=== PATIENT | female | born 1960 | race Caucasian/White ===

== ENCOUNTER → 2016-10-29 | Outpatient (CLI) | payer BC, OTHER ==
[2016-10-29 20:17] LABS: Basophils % (A) 0 %; CH 27.9; CHCM 32.9; Eosinophils # (A) 0.1 k/uL (0-0.7); Eosinophils % (A) 1 %; HCT 43.7 % (34.0-46.0); HDW 2.94; HGB 14.6 gm/dL (11.4-16.0); Luc # (Auto) 0.11; Luc % (Auto) 2; Lymphocytes # (A) 1.8 k/uL (1.0-4.8); Lymphocytes % (A) 33 %; MCH 28.6 pg (25.0-35.0); MCHC 33.5 g/dL (31.0-37.0); MCV 85.3 fL (80.0-100.0); Mean Platelet Volume 7.8; Monocytes # (A) 0.2 k/uL (0-1.0); Monocytes % (A) 4 %; Neutrophils # (A) 3.3 k/uL (1.3-7.7); Neutrophils % (A) 60 %; RBC 5.12 m/uL (3.80-5.40); RDW 13.8 % (11.5-15.5); WBC 5.5 k/uL (3.8-10.6); WBC (Perox) 5.36
[2016-10-29 21:45] LABS: ALT 28 U/L (9-52); AST 25 U/L (14-36); Alkaline Phosphatase 88 U/L (38-126); Anion Gap 9 mmol/L; Blood Urea Nitrogen 18 mg/dL (7-17); Calcium 10.5 mg/dL (8.4-10.2); Carbon Dioxide 28 mmol/L (22-30); Chloride 104 mmol/L (98-107); Cholesterol 205 mg/dL (<200); Glucose 97 mg/dL (74-99); HDL Cholesterol 69 mg/dL (40-60); Non-African American GFR(MDRD) >60 (>60 ml/min/1.73 sqM); Potassium 4.7 mmol/L (3.5-5.1); Sodium 141 mmol/L (137-145); Total Bilirubin 1.1 mg/dL (0.2-1.3); Total Protein 7.4 g/dL (6.3-8.2); Triglycerides 75 mg/dL (<150)
== END | disposition home or self-care (01) ==
LOC: MMGSC 11:05
PROVIDERS: ATTEND Family Medicine
DX: Z00.00 Encounter for general adult medical examination without abnormal findings (principal); L73.9 Follicular disorder, unspecified
CPT/HCPCS: 36415; 80053; 80061; 84439; 84443; 85025; 87070; 87075; 87205

== ENCOUNTER → 2016-11-01 | Outpatient (CLI) | payer BC, OTHER ==
--- NOTE | 2016-11-02 09:26 | MM ---
Reason for exam: screening (asymptomatic). Last mammogram was performed 1 year and 1 month ago. History: Patient is postmenopausal. Benign right breast aspiration of the right breast, January 06, 2012. Took hormonal contraceptives for 10 years. Physical Findings: A clinical breast exam by your physician is recommended on an annual basis and results should be correlated with mammographic findings. MG Screening Mammo w CAD Bilateral CC and MLO view(s) were taken. Prior study comparison: September 27, 2015, bilateral MG screening mammo w CAD. January 12, 2013, CAD bilateral diagnostic mammogram. April 12, 2011, bilateral digital screening mammo w/CAD. The breast tissue is heterogeneously dense. This may lower the sensitivity of mammography. Previous mammotome biopsy in the right breast. Focal asymmetry in the right breast middle depth slight outer aspect. This finding is changed when compared with previous exams. ASSESSMENT: Incomplete: need additional imaging evaluation, BI-RAD 0 RECOMMENDATION: Special view mammogram of the right breast. If lesion persists on supplemental views, image directed ultrasound is recommended. [facility] will attempt to contact patient to return for supplemental views and ultrasound if indicated.
== END | disposition home or self-care (01) ==
LOC: RADMAMWWP 16:34
PROVIDERS: ATTEND Family Medicine
DX: Z12.31 Encounter for screening mammogram for malignant neoplasm of breast (principal); R92.8 Other abnormal and inconclusive findings on diagnostic imaging of breast

== ENCOUNTER → 2016-11-03 | Outpatient (CLI) | payer BC, OTHER ==
--- NOTE | 2016-11-04 07:19 | MM ---
Reason for exam: additional evaluation requested from abnormal screening. Last mammogram was performed less than 1 month ago. History: Patient is postmenopausal. Benign right breast aspiration of the right breast, January 06, 2012. Took hormonal contraceptives for 10 years. Physical Findings: Nurse did not find any significant physical abnormalities on exam. MG Work Up Mamm w CAD RT LM, spot compression CC, and spot compression MLO view(s) were taken of the right breast. Prior study comparison: November 01, 2016, bilateral MG screening mammo w CAD. September 27, 2015, bilateral MG screening mammo w CAD. January 12, 2013, CAD bilateral diagnostic mammogram. The breast tissue is heterogeneously dense. This may lower the sensitivity of mammography. Focal asymmetry does not completely go away. These results were verbally communicated with the patient and result sheet given to the patient on 11/03/16. ASSESSMENT: Incomplete: need additional imaging evaluation, BI-RAD 0 RECOMMENDATION: Ultrasound of the right breast.
--- NOTE | 2016-11-04 07:21 | USB ---
Reason for exam: additional evaluation requested from abnormal screening. History: Patient is postmenopausal. Benign right breast aspiration of the right breast, January 06, 2012. Took hormonal contraceptives for 10 years. US Breast Workup Limited RT Right breast ultrasound demonstrates a 3 x 2 x 3mm oval lesion too small to characterize at 8 o'clock and a 3 x 3 x 4mm oval, solid lesion, probable lymph node at 8 o'clock. These results were verbally communicated with the patient and result sheet given to the patient on 11/03/16. ASSESSMENT: Probably benign, BI-RAD 3 RECOMMENDATION: Follow-up diagnostic mammogram and ultrasound of the right breast in 6 months.
== END | disposition home or self-care (01) ==
LOC: RADMAMWWP 15:35
PROVIDERS: ATTEND Family Medicine
DX: R92.8 Other abnormal and inconclusive findings on diagnostic imaging of breast (principal)
CPT/HCPCS: 76642; G0206

== ENCOUNTER → 2017-02-11 | Outpatient (CLI) | payer BC, OTHER ==
[2017-02-11 17:28] LABS: Blood Urea Nitrogen 28 mg/dL (7-17); Non-African American GFR(MDRD) >60 (>60 ml/min/1.73 sqM)
== END ==
LOC: LABWHC1 17:00
PROVIDERS: ATTEND Family Medicine
DX: M54.32 Sciatica, left side (principal)
CPT/HCPCS: 36415; 82565; 84520

== ENCOUNTER → 2017-02-12 | Outpatient (CLI) | payer BC, OTHER ==
--- NOTE | 2017-02-12 11:19 | MR ---
MR lumbar spine wo/w con Left Sciatic Pain x14 months MultiHance Multiplanar, multiecho imaging of the lumbar spine was obtained without contrast on a 3 Sofi magnet. REFERENCE: None. FINDINGS: There is a small, 1 cm cystic lesion arising from the lower pole of the left kidney. Christopher sofía soft tissues are otherwise normal. Vertebral body height and alignment are maintained. There is no spondylolysis or spondylolisthesis. Cord signal is maintained. The conus ends normally at the level of the mid body of L1. At T12-L1 and L1-2, no definite abnormality is seen. At L2-3, there is mild disc space loss and disc desiccation. The intervertebral foramina are well freddy ntained. There is mild hypertrophic change in the facets. There is a diffuse disc displacement. There is minimal trefoiling of the thecal sac. At L3-4, there is disc space loss and disc desiccation. Intervertebral foramina are widely maintained . There is a diffuse disc displacement. This hypertrophic change and capsulitis within the facets. Th ere is mild trefoiling of the thecal sac. At L4-5, intervertebral foramina are well maintained. There is a diffuse disc displacement. This hype rtrophic change and capsulitis within the facets. There is mild trefoiling of the thecal sac. At L5-S1, the intervertebral foramina are well maintained. There is a tiny central disc displacement effacing the thecal sac without definite neural compression. There hypertrophic changes and capsuliti s within the facets. IMPRESSION: 1. DIFFUSE DEGENERATIVE DISC DISEASE AND FACET ARTHROPATHY. 2. NO SIGNIFICANT COMPRESSIVE DISCOPATHY OR NEURAL COMPRESSION. 3. TINY CYSTIC LESION ARISING FROM THE LOWER POLE OF THE LEFT KIDNEY. THIS COULD BE FURTHER INVESTIGA SUHA WITH ULTRASOUND.
== END | disposition home or self-care (01) ==
LOC: RADMRIMAIN 10:07
PROVIDERS: ATTEND Family Medicine
DX: M51.36 Other intervertebral disc degeneration, lumbar region (principal); M46.06 Spinal enthesopathy, lumbar region
CPT/HCPCS: 72158; A9577

== ENCOUNTER → 2017-04-21 | Outpatient (CLI) | payer BC, OTHER ==
--- NOTE | 2017-04-21 17:53 | US ---
EXAMINATION TYPE: US kidneys/renal and bladder DATE OF EXAM: 04/21/2017 COMPARISON: MR 2017 CLINICAL HISTORY: N28.1 kidney cyst. EXAM MEASUREMENTS: Right Kidney: 10.1 X 5.2 X 4.6 cm Left Kidney: 10.0 X 4.9 X 5.5 cm Post Void Residual Volume: 15.3 mL Right Kidney: No hydronephrosis or masses seen Left Kidney: possible small cyst lower pole 1.3 x1.6 x 1.1cm Bladder: wnl Bilateral Jets seen: Yes Normal Post Void Residual: Yes IMPRESSION: No evidence of solid renal mass or obstruction. Normal bladder emptying. Small left renal cortical cy st.
== END | disposition home or self-care (01) ==
LOC: RADUSWWP 15:54
PROVIDERS: ATTEND Family Medicine
DX: N28.1 Cyst of kidney, acquired (principal)
CPT/HCPCS: 76770

== ENCOUNTER → 2017-05-06 | Outpatient (CLI) | payer BC, OTHER ==
--- NOTE | 2017-05-06 08:53 | USB ---
Reason for exam: follow-up at short interval from prior study. History: Patient is postmenopausal. Benign right breast aspiration of the right breast, January 06, 2012. Took hormonal contraceptives for 10 years. Physical Findings: Nurse did not find any significant physical abnormalities on exam. US Breast RT Right breast ultrasound includes all four quadrants, the retroareolar region and axilla. Finding demonstrates three oval lesions too small to characterize measuring 0.2 x 0.2 x 0.1cm at 8 o'clock, 0.4 x 0.4 x 0.2cm at 10 o'clock and 0.4 x 0.4 x 0.2cm at 11 o'clock. These results were verbally communicated with the patient and result sheet given to the patient on 05/06/17. ASSESSMENT: Incomplete: need additional imaging evaluation, BI-RAD 0 RECOMMENDATION: Follow-up diagnostic mammogram of the right breast.
--- NOTE | 2017-05-06 09:00 | MM ---
Reason for exam: additional evaluation requested from abnormal screening. Last mammogram was performed 6 months ago. History: Patient is postmenopausal. Benign right breast aspiration of the right breast, January 06, 2012. Took hormonal contraceptives for 10 years. MG Diagnostic Mammo RT w CAD CC and MLO view(s) were taken of the right breast. Prior study comparison: November 03, 2016, right breast MG work up mamm w CAD RT. November 01, 2016, bilateral MG screening mammo w CAD. The breast tissue is heterogeneously dense. This may lower the sensitivity of mammography. No significant new findings when compared with previous films. These results were verbally communicated with the patient and result sheet given to the patient on 05/06/17. ASSESSMENT: Benign, BI-RAD 2 RECOMMENDATION: Return to routine screening mammogram schedule for both breasts. Back on schedule.
== END | disposition home or self-care (01) ==
LOC: RADUSWWP 06:58
PROVIDERS: ATTEND Family Medicine
DX: R92.8 Other abnormal and inconclusive findings on diagnostic imaging of breast (principal)
CPT/HCPCS: 76641; G0206

== ENCOUNTER → 2018-06-16 | Outpatient (CLI) | payer BC, OTHER ==
--- NOTE | 2018-06-19 10:03 | MM ---
Reason for exam: additional evaluation requested from prior study. Last mammogram was performed 1 year and 1 month ago. History: Patient is postmenopausal. Benign right breast aspiration of the right breast, January 06, 2012. Took hormonal contraceptives for 10 years. Physical Findings: Nurse did not find any significant physical abnormalities on exam. MG 3D Diag Mammo W/Cad BILL Bilateral CC and MLO view(s) were taken. Prior study comparison: May 06, 2017, right breast MG diagnostic mammo RT w CAD. November 03, 2016, right breast MG work up mamm w CAD RT. The breast tissue is heterogeneously dense. This may lower the sensitivity of mammography. No suspicious calcifications are seen. Previous mammotome biopsy in the right breast. There is chronic nodularity bilaterally. There is no dominant lesion. No significant new findings when compared with previous films. These results were verbally communicated with the patient and result sheet given to the patient on 06/16/18. ASSESSMENT: Benign, BI-RAD 2 RECOMMENDATION: Routine screening mammogram of both breasts in 1 year.
== END | disposition home or self-care (01) ==
LOC: RADMAMWWP 15:02
PROVIDERS: ATTEND Family Medicine
DX: R92.8 Other abnormal and inconclusive findings on diagnostic imaging of breast (principal)
CPT/HCPCS: 77062; 77066

== ENCOUNTER → 2018-07-25 | Outpatient (CLI) | payer OTHER ==
--- NOTE | 2018-07-25 18:06 | XR ---
EXAMINATION TYPE: XR wrist complete BILATERAL DATE OF EXAM: 07/25/2018 COMPARISON: NONE HISTORY: Bilateral hand and wrist pain TECHNIQUE: 4 views each wrist FINDINGS: There is some narrowing and spurring at the first carpometacarpal joint of both wrists. The re is narrowing at the scaphoid trapezium joint bilaterally. I see no fracture nor dislocation. There are no erosions. Radiocarpal joints are intact. IMPRESSION: Osteoarthritic changes. No sign of inflammatory arthritis.
--- NOTE | 2018-07-25 18:07 | XR ---
EXAMINATION TYPE: XR hand complete bilateral DATE OF EXAM: 07/25/2018 COMPARISON: NONE HISTORY: Hand and wrist pain TECHNIQUE: 3 views each hand FINDINGS: I see no fracture nor dislocation. Joint spaces overall are fairly normal. There is degener ative spurring at the first carpometacarpal joints bilaterally. Metacarpals are intact. There is no s ubluxation. There is no osteopenia. 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 No fracture. No sign of inflammatory arthritis.
== END | disposition home or self-care (01) ==
LOC: RADXRMAIN 17:13
PROVIDERS: ATTEND Emergency Medicine
DX: M19.042 Primary osteoarthritis, left hand (principal); M19.041 Primary osteoarthritis, right hand; M19.032 Primary osteoarthritis, left wrist; M19.031 Primary osteoarthritis, right wrist

== ENCOUNTER → 2019-08-28 | Outpatient (CLI) | payer OTHER ==
--- NOTE | 2019-08-30 10:11 | MM ---
Reason for exam: screening (asymptomatic). Last mammogram was performed 1 year and 2 months ago. History: Patient is postmenopausal. Benign right breast aspiration of the right breast, January 06, 2012. Took hormonal contraceptives for 10 years. Physical Findings: A clinical breast exam by your physician is recommended on an annual basis and results should be correlated with mammographic findings. MG 3D Screening Mammo W/Cad Bilateral CC and MLO view(s) were taken. Prior study comparison: June 16, 2018, bilateral MG 3d diag mammo w/cad BILL. May 06, 2017, right breast MG diagnostic mammo RT w CAD. The breast tissue is heterogeneously dense. This may lower the sensitivity of mammography. Previous mammotome biopsy in the right breast. There is chronic nodularity bilaterally. No significant changes when compared with prior studies. ASSESSMENT: Benign, BI-RAD 2 RECOMMENDATION: Routine screening mammogram of both breasts in 1 year.
== END | disposition home or self-care (01) ==
LOC: RADMAMWWP 08:12
PROVIDERS: ATTEND Family Medicine
DX: Z12.31 Encounter for screening mammogram for malignant neoplasm of breast (principal)
CPT/HCPCS: 77063; 77067

== ENCOUNTER → 2020-11-11 | Outpatient (CLI) | payer OTHER | END | disposition home or self-care (01) | LOC: LABWHC1 16:51 | PROVIDERS: ATTEND Family Medicine | DX: U07.1 COVID-19 (principal) | CPT/HCPCS: U0003; C9803; U0005 ==

== ENCOUNTER 2020-11-19 08:21 | Emergency (ER) | payer OTHER ==
[2020-11-19 08:27] VITALS: TEMP 99.4
--- NOTE | 2020-11-19 08:31 | ED ---
General Adult HPI - General Chief complaint: Shortness of Breath Stated complaint: SOB Time Seen by Provider: 11/19/20 08:25 Source: patient, EMS, RN notes reviewed, old records reviewed Mode of arrival: EMS Limitations: no limitations - History of Present Illness Initial comments: This a 60-year-old female presents emergency department with exposure to COVID. Patient states some of her symptoms started on . Patient states she's had a dry cough and some shortness of breath. Patient called EMS this morning to take care of her witnessed syncopal episode and when they were there she mentioned she wasn't feeling good so they checked her out and she was oxygenating in the high 80s and so they placed on oxygen and brought her in. P atient denies any palpitations or chest pain. Patient denies any nausea vomiting. Patient denies any diarrhea. Patient denies any dysuria hematuria urinary frequency. Patient states she hasn't had a fever chills lately. - Related Data Home Medications Medication Instructions Recorded Confirmed Sertraline [Zoloft] 100 mg PO DAILY 09/18/15 11/19/20 Albuterol Sulfate [Ventolin HFA] 1 - 2 puff INHALATION RT-Q6H PRN 11/19/20 11/19/20 Azithromycin [Zithromax Z-pack (6 See Taper PO DIRECTED 11/19/20 11/19/20 tabs)] Benzonatate [Tessalon Perles] 100 - 200 mg PO TID PRN 11/19/20 11/19/20 lisinopriL [Lisinopril] 20 mg PO DAILY 11/19/20 11/19/20 methylPREDNISolone [Medrol Dose See Taper PO DIRECTED 11/19/20 11/19/20 Pack] Allergies Allergy/AdvReac Type Severity Reaction Status Date / Time No Known Allergies Allergy Verified 11/19/20 09:19 Review of Systems ROS Statement: Those systems with pertinent positive or pertinent negative responses have been documented in the HPI. ROS Other: All systems not noted in ROS Statement are negative. Past Medical History Past Medical History: Hypertension, Skin Disorder Additional Past Medical History / Comment(s): arthritis, acne History of Any Multi-Drug Resistant Organisms: None Reported Past Surgical History: Joint Replacement, Orthopedic Surgery, Tubal Ligation Additional Past Surgical History / Comment(s): left knee replacement, joints re placed in both great toes, rt wrist surgery Past Anesthesia/Blood Transfusion Reactions: Postoperative Nausea & Vomiting (PONV) Past Psychological History: No Psychological Hx Reported Smoking Status: Never smoker Past Alcohol Use History: None Reported Past Drug Use History: None Reported - Past Family History Sister(s) Family Medical History: Cancer General Exam - General Exam Comments Initial Comments: GENERAL: Patient is well-developed and well-nourished. Patient is nontoxic and well- hydrated and is in mild distress. ENT: Neck is soft and supple. No significant lymphadenopathy is noted. Oropharynx is clear. Moist mucous membranes. Neck has full range of motion without eliciting any pain. EYES: The sclera were anicteric and conjunctiva were pink and moist. Extraocular movements were intact and pupils were equal round and reactive to light. Eyelids were unremarkable. PULMONARY: Unlabored respirations. Good breath sounds bilaterally. No audible rales rhonchi or wheezing was noted. CARDIOVASCULAR: There is a regular rate and rhythm without any murmurs gallops or rubs. ABDOMEN: Soft and nontender with normal bowel sounds. No palpable organomegaly was noted. There is no palpable pulsatile mass. SKIN: Skin is clear with no lesions or rashes and otherwise unremarkable. NEUROLOGIC: Patient is alert and oriented x3. Cranial nerves II through XII are grossly intact. Motor and sensory are also intact. Normal speech, volume and content. Symmetrical smile. MUSCULOSKELETAL: Normal extremities with adequate strength and full range of motion. LYMPHATICS: No significant lymphadenopathy is noted PSYCHIATRIC: Normal psychiatric evaluation. Limitations: no limitations Course Vital Signs 11/19/20 11/19/20 08:22 09:00 Temperature 99.4 F Pulse Rate 77 73 Respiratory 18 18 Rate Blood Pressure 134/59 O2 Sat by Pulse 94 L 93 L Oximetry Medical Decision Making - Medical Decision Making EKG shows normal sinus rhythm at 73 bpm FL interval 232 QRS is 88 QT interval 396 QTC is 436 per patient's EKG shows no ST segment elevation or depression. I went into the patient's room multiple times the patient's oxygenation was 9495% on room air. CT of the chest shows no pulmonary embolism however does show groundglass infiltrate bilaterally consistent with Patient received monoclonal antibodies. - Lab Data Result diagrams: 11/19/20 08:27 11/19/20 08:27 Lab Results 11/19/20 11/19/20 11/19/20 Range/Units 08:27 08:27 08:27 WBC 5.9 (3.8-10.6) k/uL RBC 4.93 (3.80-5.40) m/uL Hgb 13.6 (11.4-16.0) gm/dL Hct 38.8 (34.0-46.0) % MCV 78.8 L (80.0-100.0) fL MCH 27.6 (25.0-35.0) pg MCHC 35.0 (31.0-37.0) g/dL RDW 13.8 (11.5-15.5) % Plt Count 183 (150-450) k/uL MPV 7.1 Neutrophils % 84 % Lymphocytes % 9 % Monocytes % 5 % Eosinophils % 1 % Basophils % 0 % Neutrophils # 4.9 (1.3-7.7) k/uL Lymphocytes # 0.5 L (1.0-4.8) k/uL Monocytes # 0.3 (0-1.0) k/uL Eosinophils # 0.1 (0-0.7) k/uL Basophils # 0.0 (0-0.2) k/uL PT 10.0 (9.0-12.0) sec INR 0.9 (<1.2) APTT 23.4 (22.0-30.0) sec D-Dimer 0.68 H (<0.60) mg/L FEU Sodium 138 (137-145) mmol/L Potassium 3.6 (3.5-5.1) mmol/L Chloride 108 H (98-107) mmol/L Carbon Dioxide 20 L (22-30) mmol/L Anion Gap 10 mmol/L BUN 19 H (7-17) mg/dL Creatinine 0.61 (0.52-1.04) mg/dL Est GFR (CKD-EPI)AfAm >90 (>60 ml/min/1.73 sqM) Est GFR (CKD-EPI)NonAf >90 (>60 ml/min/1.73 sqM) Glucose 156 H (74-99) mg/dL Plasma Lactic Acid Landon (0.7-2.0) mmol/L Calcium 9.4 (8.4-10.2) mg/dL Magnesium 1.9 (1.6-2.3) mg/dL Total Bilirubin 0.8 (0.2-1.3) mg/dL AST 46 H (14-36) U/L ALT 25 (4-34) U/L Alkaline Phosphatase 85 (38-126) U/L Lactate Dehydrogenase 602 (313-618) U/L C-Reactive Protein 42.5 H (<10.0) mg/L Total Protein 6.5 (6.3-8.2) g/dL Albumin 3.6 (3.5-5.0) g/dL Coronavirus (PCR) (Not Detectd) 11/19/20 11/19/20 11/19/20 Range/Units 08:27 08:32 10:43 WBC (3.8-10.6) k/uL RBC (3.80-5.40) m/uL Hgb (11.4-16.0) gm/dL Hct (34.0-46.0) % MCV (80.0-100.0) fL MCH (25.0-35.0) pg MCHC (31.0-37.0) g/dL RDW (11.5-15.5) % Plt Count (150-450) k/uL MPV Neutrophils % % Lymphocytes % % Monocytes % % Eosinophils % % Basophils % % Neutrophils # (1.3-7.7) k/uL Lymphocytes # (1.0-4.8) k/uL Monocytes # (0-1.0) k/uL Eosinophils # (0-0.7) k/uL Basophils # (0-0.2) k/uL PT (9.0-12.0) sec INR (<1.2) APTT (22.0-30.0) sec D-Dimer (<0.60) mg/L FEU Sodium (137-145) mmol/L Potassium (3.5-5.1) mmol/L Chloride (98-107) mmol/L Carbon Dioxide (22-30) mmol/L Anion Gap mmol/L BUN (7-17) mg/dL Creatinine (0.52-1.04) mg/dL Est GFR (CKD-EPI)AfAm (>60 ml/min/1.73 sqM) Est GFR (CKD-EPI)NonAf (>60 ml/min/1.73 sqM) Glucose (74-99) mg/dL Plasma Lactic Acid Landon 1.2 (0.7-2.0) mmol/L Calcium (8.4-10.2) mg/dL Magnesium (1.6-2.3) mg/dL Total Bilirubin (0.2-1.3) mg/dL AST (14-36) U/L ALT (4-34) U/L Alkaline Phosphatase (38-126) U/L Lactate Dehydrogenase (313-618) U/L C-Reactive Protein (<10.0) mg/L Total Protein (6.3-8.2) g/dL Albumin (3.5-5.0) g/dL Coronavirus (PCR) Not Detected Detected A (Not Detectd) Disposition Clinical Impression: Pneumonia due to COVID-19 virus Disposition: HOME SELF-CARE Condition: Good Instructions (If sedation given, give patient instructions): Coronavirus Disease 2019 (COVID-19) Additional Instructions: Patient should return if she has any difficulty breathing or any worsening symptoms or new symptoms. Is patient prescribed a controlled substance at d/c from ED?: No Referrals: Majo Nichole MD [Primary Care Provider] - 1-2 days Time of Disposition: 11:28
[2020-11-19 08:55] LABS: Basophils % (A) 0 %; Eosinophils # (A) 0.1 k/uL (0-0.7); Eosinophils % (A) 1 %; HCT 38.8 % (34.0-46.0); HGB 13.6 gm/dL (11.4-16.0); Lymphocytes # (A) 0.5 k/uL (1.0-4.8); Lymphocytes % (A) 9 %; MCH 27.6 pg (25.0-35.0); MCV 78.8 fL (80.0-100.0); Mean Platelet Volume 7.1; Monocytes # (A) 0.3 k/uL (0-1.0); Monocytes % (A) 5 %; Neutrophils # (A) 4.9 k/uL (1.3-7.7); Neutrophils % (A) 84 %; Platelet Count 183 k/uL (150-450); RBC 4.93 m/uL (3.80-5.40); RDW 13.8 % (11.5-15.5); WBC 5.9 k/uL (3.8-10.6)
[2020-11-19 09:05] LABS: ALT 25 U/L (4-34); AST 46 U/L (14-36); African American GFR (CKD) >90 (>60 ml/min/1.73 sqM); Albumin 3.6 g/dL (3.5-5.0); Alkaline Phosphatase 85 U/L (38-126); Anion Gap 10 mmol/L; Blood Urea Nitrogen 19 mg/dL (7-17); Calcium 9.4 mg/dL (8.4-10.2); Carbon Dioxide 20 mmol/L (22-30); Chloride 108 mmol/L (98-107); Glucose 156 mg/dL (74-99); LDH 602 U/L (313-618); Magnesium 1.9 mg/dL (1.6-2.3); Non-African American GFR(CKD) >90 (>60 ml/min/1.73 sqM); Potassium 3.6 mmol/L (3.5-5.1); Sodium 138 mmol/L (137-145); Total Bilirubin 0.8 mg/dL (0.2-1.3); Total Protein 6.5 g/dL (6.3-8.2)
[2020-11-19 09:14] LABS: INR 0.9 (<1.2); Partial Thromboplastin Time 23.4 sec (22.0-30.0)
[2020-11-19 09:19] LABS: C Reactive Protein 42.5 mg/L (<10.0)
[2020-11-19 09:20] LABS: D-Dimer 0.68 mg/L FEU (<0.60)
--- NOTE | 2020-11-19 09:56 | XR ---
EXAMINATION TYPE: XR chest 1V portable DATE OF EXAM: 11/19/2020 COMPARISON: None INDICATION: Cough and shortness of breath TECHNIQUE: Single frontal view of the chest is obtained. FINDINGS: The heart size is normal. The pulmonary vasculature is somewhat prominent. Mild diffuse increased lung markings are present. Findings are nonspecific. Findings could be compati ble with atypical pneumonia IMPRESSION: 1. Mild diffuse increased lung markings with slight prominence of pulmonary vascular markings. Consid er atypical pneumonia within the differential. Mild volume overload could be considered.
--- NOTE | 2020-11-19 10:43 | CT ---
EXAMINATION TYPE: CT chest angio for PE DATE OF EXAM: 11/19/2020 COMPARISON: none HISTORY: SOB, Covid CT DLP: 417.5 mGycm CONTRAST: CT chest with contrast and 3D reconstruction with MIP imaging is performed with IV Contrast, patient injected with 69 mL of Isovue 370. Contrast-enhanced CT of the chest was performed through the course of the pulmonary arteries with terri g and mediastinal window settings submitted. 3D reconstruction with MIP imaging was also performed. PULMONARY ARTERIES: The pulmonary arteries and their major tributaries are patent. I do not see dorinda dence for sizable filling defect to suggest pulmonary embolic process. LUNGS: Scattered groundglass infiltrates are seen throughout both lung jane compatible with Covid 1 9 pneumonia. Mild compressive atelectasis and small effusions. No pulmonary nodule or mass is detecte d. MEDIASTINUM: Thoracic aorta is of normal caliber,however, evaluation is limited given timing of the contrast bolus. If there is concern for thoracic aortic pathology consider SATISH. Correlate clinicall y . The heart is not enlarged. No evidence for mediastinal mass. No mediastinal lymph nodes greater than 1cm. HILAR STRUCTURES: No evidence for mass. No hilar lymph nodes greater than 1 cm. UPPER ABDOMEN: No significant abnormality is seen. IMPRESSION: 1. No evidence for Pulmonary embolism at this time. 2.Scattered groundglass infiltrates are seen throughout both lung jane compatible with Covid 19 pne umonia.
[2020-11-19] MEDS ORDERED: BAMLANIVIMAB (EUA) 700 MG, ETESEVIMAB (EUA) 1,400 MG in SODIUM CHLORIDE 0.9% 50 ML IVPB ONE ×2 (11:45→12:15)
[2020-11-19 13:20] VITALS: BP 132/68; PULSE 68; RESP 20
[2020-11-19 16:38] LABS: Ferritin 156.5 ng/mL (10.0-291.0)
== END 2020-11-19 14:35 | disposition home or self-care (01) ==
LOC: EC 08:21
DX: U07.1 COVID-19 (principal); J12.82 Pneumonia due to coronavirus disease 2019; I10 Essential (primary) hypertension
CPT/HCPCS: 99285; 96365; 36415; 93005; 85379; 80053; 82728; 83605; 83615; 83735; 85025; 85610; 85730; 86140; 87040; 84145; 87635; 71045; 71275; Q9967; Q0245

== ENCOUNTER 2020-12-18 07:02 | Day surgery (SDC) | payer OTHER ==
[2020-12-16 12:08] VITALS: BMI 38.9
[~2020-12-18 07:02] MED LIST: LACTATED RINGERS 1,000 ML IV SCH
[2020-12-18 07:38] VITALS: TEMP 98.2
[2020-12-18] MEDS ORDERED: LIDOCAINE 1% (10MG/ML) FOR IV START INTRADERMA ONE (07:42)
[2020-12-18] MEDS ORDERED: ONDANSETRON 4 MG/2 ML VIAL ONE (07:44)
[2020-12-18] MEDS ORDERED: ONDANSETRON 4 MG/2 ML VIAL IVP ONE (07:46)
[2020-12-18] MEDS ORDERED: PROPOFOL 10 MG/ML 20 ML VIAL IV ONE (08:09)
[2020-12-18] MEDS ORDERED: LIDOCAINE 1% INJ 10MG/ML (20 ML MDV) ONE (08:09)
--- NOTE | 2020-12-18 08:36 | P.PCN ---
Date of Procedure: 12/18/20 Description of Procedure: BRIEF HISTORY: Patient is a 60-year-old female presenting for outpatient colonoscopy with personal history of colon polyps. Patient has previously undergone colonoscopy with the last in 09/2015. Previously she has had polypectomy. She does have a family history of colon cancer in her father. No change in bowel habits or blood per rectum. PROCEDURE PERFORMED: Colonoscopy. PREOPERATIVE DIAGNOSIS: Personal history of colon polyps, last colonoscopy 2015, family history of colon cancer in her father. ESTIMATED BLOOD LOSS: Minimal. IV sedation per Anesthesia. PROCEDURE: After informed consent was obtained, the patient, was brought into the endoscopy unit. IV sedation was administered by Anesthesia under continuous monitoring. Digital rectal examination was normal. Initially the Olympus CF-190 flexible video colonoscope was then inserted in the rectum, gradually advanced into the cecum without any difficulty. Careful examination was performed as the scope was gradually being withdrawn. Ileocecal valve and the appendiceal orifice were visualized and appeared normal. Prep was excellent. Mucosa of the cecum, ascending colon, transverse colon, descending colon, sigmoid colon, and rectum appeared normal. Retroflexion was performed in the rectum and no lesions were seen, low-grade internal hemorrhoids seen . The patient tolerated the procedure well. IMPRESSION: Normal-appearing colon from rectum to cecum. Internal hemorrhoids. RECOMMENDATIONS: Findings of this examination were discussed with the patient and her family. Okay to resume diet. Okay to resume medications. Continue current medical management. Recommend repeat colonoscopy in 5 years for family history of colon cancer.
[2020-12-18 09:13] VITALS: BP 113/76; PULSE 75; RESP 20
== END 2020-12-18 09:12 | disposition home or self-care (01) ==
LOC: ORWHC2ENDO 07:02
PROVIDERS: ATTEND Internal Medicine
DX: Z12.11 Encounter for screening for malignant neoplasm of colon (principal); K64.8 Other hemorrhoids; K21.9 Gastro-esophageal reflux disease without esophagitis; I10 Essential (primary) hypertension; Z86.010 Personal history of colon polyps; Z80.0 Family history of malignant neoplasm of digestive organs; Z87.891 Personal history of nicotine dependence; Z98.890 Other specified postprocedural states; Z79.82 Long term (current) use of aspirin; Z79.899 Other long term (current) drug therapy
CPT/HCPCS: J2405; J2001; J2704; G0105; 45378

== ENCOUNTER → 2022-01-28 | Outpatient (CLI) | payer OTHER ==
--- NOTE | 2022-01-30 14:41 | MM ---
Reason for Exam: Screening (asymptomatic). Last mammogram was performed 2 year(s) and 5 month(s) ago. Patient History: Menarche at age 11. First Full-Term at age 25. Postmenopausal. Patient used Hormonal Contraceptives for 10 years. 01/06/2012, Benign Cyst Aspiration on the right side. Risk Values: Candy 5 year model risk: 1.7%. NCI Lifetime model risk: 7.7%. Prior Study Comparison: 05/06/2017 Right Diagnostic Mammogram, [facility]. 06/16/2018 Bilateral Diagnostic Mammogram, [facility]. 08/28/2019 Bilateral Screening Mammogram, [facility]. Tissue Density: There are scattered fibroglandular densities. Findings: Analyzed By CAD. Chronic nodularity in the lateral aspect of both breasts. Microclip anterior right breast from prior biopsy. No significant change from prior exams. Overall Assessment: Benign, BI-RAD 2 Management: Screening Mammogram of both breasts in 1 year. A clinical breast exam by your physician is recommended on an annual basis and results should be correlated with mammographic findings. Also, the patient should continue monthly self breast exams. Electronically signed and approved by: Mariella Hobbs M.D. Radiologist
== END | disposition home or self-care (01) ==
LOC: RADMAMWWP 08:48
PROVIDERS: ATTEND Family Medicine
DX: Z12.31 Encounter for screening mammogram for malignant neoplasm of breast (principal)
CPT/HCPCS: 77067

== ENCOUNTER → 2022-02-24 | Outpatient (CLI) | payer OTHER | END | disposition home or self-care (01) | LOC: LABWHC1 16:08 | PROVIDERS: ATTEND Internal Medicine Endocrinology, Diabetes & Metabolism | DX: Z53.9 Procedure and treatment not carried out, unspecified reason (principal) ==

== ENCOUNTER 2022-08-10 09:40 | Emergency (ER) | payer OTHER ==
[2022-08-10 09:47] VITALS: BP 128/62; PULSE 79; RESP 20; TEMP 98.9
--- NOTE | 2022-08-10 10:35 | ED ---
General Adult HPI - General Chief complaint: Recheck/Abnormal Lab/Rx Stated complaint: COVID test Time Seen by Provider: 08/10/22 09:45 Source: patient, RN notes reviewed Mode of arrival: ambulatory Limitations: no limitations - History of Present Illness Initial comments: 62-year-old female presents emergency Department with chief complaint of needing COVID-19 testing. Patient states she's had congestion for last 2 days her work sent urine for testing. Patient states she has mild cold including nasal congestion, nonproductive cough, sore throat. She denies any reported fever or chills mild headache. Denies any chest pain shortness of breath. Patient offers no other associated symptoms - Related Data Home Medications Medication Instructions Recorded Confirmed Sertraline [Zoloft] 100 mg PO DAILY 09/18/15 12/18/20 lisinopriL [Lisinopril] 20 mg PO DAILY 11/19/20 12/18/20 Aspirin With Advil(Unknown Rx) 1 dose PO ONCE 12/16/20 12/18/20 Calcium Carb/Magnesium Hydrox 1 each PO DIRECTED PRN 12/16/20 12/18/20 [Rolaids Chewable Tablet] Cholecalciferol [Vitamin D3 (25 2,000 units PO DAILY 12/16/20 12/18/20 Mcg = 1000 Iu)] Heart Supplement 1 tab PO DAILY 12/16/20 12/18/20 Lutein (Unknown Dose) 1 tab PO DAILY 12/16/20 12/18/20 Vitamin C (Unknown Dose) 1 tab PO DAILY 12/16/20 12/18/20 Allergies Allergy/AdvReac Type Severity Reaction Status Date / Time No Known Allergies Allergy Verified 08/10/22 09:47 Review of Systems ROS Statement: Those systems with pertinent positive or pertinent negative responses have been documented in the HPI. ROS Other: All systems not noted in ROS Statement are negative. Past Medical History Past Medical History: Diabetes Mellitus, Hypertension, Skin Disorder Additional Past Medical History / Comment(s): arthritis, acne History of Any Multi-Drug Resistant Organisms: None Reported Past Surgical History: Joint Replacement, Orthopedic Surgery, Tubal Ligation Additional Past Surgical History / Comment(s): left knee replacement, joints replaced in both great toes, rt wrist surgery Past Anesthesia/Blood Transfusion Reactions: Postoperative Nausea & Vomiting (PONV) Past Psychological History: No Psychological Hx Reported Smoking Status: Never smoker Past Alcohol Use History: None Reported Past Drug Use History: None Reported - Past Family History Sister(s) Family Medical History: No Reported History Father Family Medical History: Cancer, Myocardial Infarction ([place]) Additional Family Medical History / Comment(s): colon cancer General Exam Limitations: no limitations General appearance: alert, in no apparent distress Head exam: Present: atraumatic, normocephalic, normal inspection Eye exam: Present: normal appearance, PERRL, EOMI. Absent: scleral icterus, conjunctival injection, periorbital swelling ENT exam: Present: normal exam, normal oropharynx, mucous membranes moist Neck exam: Present: normal inspection, full ROM. Absent: tenderness, meningismus, lymphadenopathy Respiratory exam: Present: normal lung sounds bilaterally. Absent: respiratory distress, wheezes, rales, rhonchi, stridor Cardiovascular Exam: Present: regular rate, normal rhythm, normal heart sounds. Absent: systolic murmur, diastolic murmur, rubs, gallop, clicks Course Vital Signs 08/10/22 09:45 Temperature 98.9 F Pulse Rate 79 Respiratory 20 Rate Blood Pressure 128/62 O2 Sat by Pulse 98 Oximetry Medical Decision Making - Medical Decision Making Patient has COVID-19 positive. Patient discharged in stable condition. - Lab Data Lab Results 08/10/22 08/10/22 Range/Units 09:50 09:50 Coronavirus (PCR) Detected A (Not Detectd) Influenza Type A RNA Not Detected (Not Detectd) Influenza Type B (PCR) Not Detected (Not Detectd) Disposition Clinical Impression: COVID-19 Disposition: HOME SELF-CARE Condition: Stable Instructions (If sedation given, give patient instructions): COVID-19 (Coronavirus Disease 2019) (ED) Additional Instructions: Please return to the Emergency Department if symptoms worsen or any other concerns. Is patient prescribed a controlled substance at d/c from ED?: No Referrals: Majo Nichole MD [Primary Care Provider] - 1-2 days Time of Disposition: 10:34
== END 2022-08-10 10:42 | disposition home or self-care (01) ==
LOC: EC 09:40
DX: U07.1 COVID-19 (principal); I10 Essential (primary) hypertension; E11.9 Type 2 diabetes mellitus without complications; Z79.899 Other long term (current) drug therapy; Z79.82 Long term (current) use of aspirin
CPT/HCPCS: 87502; 87635; 99283

== ENCOUNTER → 2023-02-01 | Outpatient (CLI) | payer OTHER ==
[2023-02-01 20:51] LABS: Blood Urea Nitrogen 17.6 mg/dL (9.0-27.0); Calcium 10.5 mg/dL (8.7-10.3); Carbon Dioxide 22.5 mmol/L (21.6-31.8); Chloride 103 mmol/L (96-109); Glucose 88 mg/dL (70-110); Potassium 4.4 mmol/L (3.5-5.5); Sodium 139 mmol/L (135-145)
[2023-02-02 00:07] LABS: Basophils # (A) 0.02 X 10*3/uL (0.00-0.10); Basophils % (A) 0.3 %; Eosinophils # (A) 0.12 X 10*3/uL (0.04-0.35); Eosinophils % (A) 1.6 %; HCT 42.9 % (37.2-46.3); Lymphocytes # (A) 2.28 X 10*3/uL (0.90-5.00); MCH 27.6 pg (27.0-32.0); MCHC 32.6 d/dL (32.0-37.0); MCV 84.4 FL (80.0-97.0); Monocytes # (A) 0.47 X 10*3/uL (0.20-1.00); Monocytes % (A) 6.2 %; NRBC Per 100 WBC 0 X 10*3/uL (0.00-0.01); Neutrophils # (A) 4.68 X 10*3/uL (1.80-7.70); Neutrophils % (A) 61.5 %; Platelet Count 218 X 10*3/uL (140-440); RBC 5.08 X 10*6/uL (4.10-5.20); RDW 13.3 % (11.5-14.5)
== END | disposition home or self-care (01) ==
LOC: LABPAT 15:02
PROVIDERS: ATTEND Orthopaedic Surgery Hand Surgery
DX: Z01.818 Encounter for other preprocedural examination (principal); G56.01 Carpal tunnel syndrome, right upper limb; M13.841 Other specified arthritis, right hand
CPT/HCPCS: 80048; 85025; 93005

== ENCOUNTER → 2023-02-01 | Outpatient (CLI) | payer OTHER ==
--- NOTE | 2023-02-01 15:16 | US ---
EXAMINATION TYPE: US kidneys/renal and bladder DATE OF EXAM: 02/01/2023 COMPARISON: US 2017 CLINICAL INDICATION: Female, 62 years old with history of R31.9 HEMATURIA, R10.9 FLANK PAIN; Hx stone s, cyst on left kidney. Pain x 1 year pain has gotten worse x 1 week. EXAM MEASUREMENTS: Right Kidney: 11.7 x 6.2 x 6.0 cm Left Kidney: 12.0 x 6.5 x 6.6 cm Right Kidney: Hyperechoic focus seen at mid: 0.5 x 0.5 x 0.4 cm. Left Kidney: Appearance of minimal hydronephrosis- scanned post void as well-renal pelvis measures 1.3 cm. Bladder: Appears wnl Bilateral Jets seen: Yes Minimal left hydronephrosis. Nonobstructive right renal calculus measuring up to 0.5 cm. No solid shania al mass identified. Bladder appears unremarkable with bilateral ureter jets identified. IMPRESSION: 1. Minimal left hydronephrosis. 2. Nonobstructive right renal calculus.
== END | disposition home or self-care (01) ==
LOC: RADUSWWP 14:01
PROVIDERS: ATTEND Family Medicine
DX: N13.2 Hydronephrosis with renal and ureteral calculous obstruction (principal); R31.9 Hematuria, unspecified; Z87.442 Personal history of urinary calculi
CPT/HCPCS: 76770

== ENCOUNTER 2023-04-06 10:56 | Day surgery (SDC) | payer OTHER ==
[2023-03-29 15:53] VITALS: BMI 34.2
--- NOTE | 2023-04-04 12:44 | P.HPOR ---
History of Present Illness H&P Date: 04/04/23 Subjective: This is a 62 year old female that presents today for initial evaluation regarding a 1 year history of progressively worsening right basilar thumb pain as well as numbness and tingling in the thumb, index, middle and ring fingers. She has tried bracing with minimal relief. 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 She denies any injury or any other areas of pain. She notes loss of strength, specifically with pinching and grasping things. Physical Examination: RUE: AIN/PIN/Radial/Ulnar/Median motor intact. Radial/Ulnar/Median SILT. 2+/4 Radial/Ulnar pulses palpated. 5/5 APB, 5/5 FDI. Negative Finkelsteins, positive CMC grind, positive Durkan's compression. Imaging: X-Rays of the right hand, 3 view taken in office today demonstrate severe arthritic changes at the thumb CMC joint. Benign cystic appearing mass in the medullary canal of the thumb proximal phalanx. Impression: 1.) Right thumb CMC arthritis, severe. 2.) Right carpal tunnel syndrome. Plan: She has failed conservative treatment for her right thumb arthritis and right carpal tunnel syndrome and would like to pursue a right thumb basilar joint arthroplasty and right endoscopic versus open carpal tunnel release. Risks and benefits of surgery including bleeding, infection, damage to surrounding tissue, need for further surgery, possible need to convert to open procedure, residual numbness were discussed and the patient wished to go forward with surgery. Diagnosis and treatment options were discussed with the patient. 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 The patient was agreeable with this plan. CC: Majo Adair M.D. -Jeffrey Marte DO Orthopedic Hand/Upper Extremity Surgeon Past Medical History Past Medical History: Diabetes Mellitus, Hypertension, Skin Disorder Additional Past Medical History / Comment(s): acne,bone spurs,kidney stones 1979,parathyroid makes too much CA tx with Vit D3 History of Any Multi-Drug Resistant Organisms: None Reported Past Surgical History: Joint Replacement, Orthopedic Surgery, Tubal Ligation Additional Past Surgical History / Comment(s): leeanna knee replacement, joints replaced in both great toes, rt wrist surgery Past Anesthesia/Blood Transfusion Reactions: Postoperative Nausea & Vomiting (PONV) Additional Past Anesthesia/Blood Transfusion Reaction / Comment(s): no hx blood transfusion Smoking Status: Former smoker - Past Family History Sister(s) Family Medical History: No Reported History Father Family Medical History: Cancer, Myocardial Infarction ([place]) Additional Family Medical History / Comment(s): colon cancer Medications and Allergies Home Medications Medication Instructions Recorded Confirmed Type Sertraline [Zoloft] 100 mg PO QAM 09/18/15 03/29/23 History lisinopriL [Lisinopril] 20 mg PO QAM 11/19/20 03/29/23 History Cholecalciferol [Vitamin D3 (25 125 mcg PO DAILY 12/16/20 03/29/23 History Mcg = 1000 Iu)] Lovastatin [Mevacor] 10 mg PO HS 03/29/23 03/29/23 History Multivitamins, Thera [Multivitamin 1 tab PO DAILY 03/29/23 03/29/23 History (formulary)] Tirzepatide [Mounjaro] 5 mg SQ Q7D 03/29/23 03/29/23 History metFORMIN HCL [Glucophage] 500 mg PO BID 03/29/23 03/29/23 History Allergies Allergy/AdvReac Type Severity Reaction Status Date / Time No Known Allergies Allergy Verified 03/29/23 15:37 Physical Examination Osteopathic Statement: *. No significant issues noted on an osteopathic structural exam other than those noted in the History and Physical/Consult.
[~2023-04-06 10:56] MED LIST changes: +DEXAMETHASONE SOD PHOSPHATE 4 MG/ML 1 ML VIAL IV ONE; +HYDROmorphone 0.5 MG/0.5 ML SYRINGE IVP PRN; +LIDOCAINE 1% (10MG/ML) FOR IV START INTRADERMA PRN; +ONDANSETRON 4 MG/2 ML VIAL IVP ONE; +droPERidol 5 MG/2 ML VIAL IVP ONE
[2023-04-06] MEDS ORDERED: MIDAZOLAM 2 MG/2 ML VIAL IVP ONE (11:21)
[2023-04-06 11:22] LABS: Glucose,Whole Blood 111 mg/dL (70-110)
[2023-04-06] MEDS ORDERED: fentaNYL (PF) 50 MCG/ML 2 ML AMP IVP ONE (11:22)
[2023-04-06 11:25] VITALS: TEMP 97.5
--- NOTE | 2023-04-06 11:32 | P.ANPRN ---
Procedure Note - Anesthesia - Nerve Block Performed Right Axillary Single Date of Procedure: 04/06/23 Procedure Start Time: : Procedure Stop Time: Location of Patient: PreOp Indication: Acute Post-Operative Pain, Dx/Pain Location (Right thumb/right wrist), Requested by Surgeon (Dr Marte) Specifically requested for management of pain by DrShasha: Jeffrey Marte Sedation Type: Sedate with meaningful contact maintained Preparation: Sterile Prep Position: Supine Needle Types: Pajunk Needle Gauge: 21 Ultrasound used to visualize needle placement: Yes Ultrasound used to observe medication spread: Yes Injectate: Other (see comment) (30 mL/Decadron 4 mg)
[2023-04-06] MEDS ORDERED: MIDAZOLAM 2 MG/2 ML VIAL ONE (11:46)
[2023-04-06] MEDS ORDERED: DEXAMETHASONE SOD PHOSPHATE 4 MG/ML 1 ML VIAL ONE (11:46)
[2023-04-06] MEDS ORDERED: ROPIVACAINE 5 MG/ML 30 ML VIAL ONE (11:46)
[2023-04-06] MEDS ORDERED: fentaNYL (PF) 50 MCG/ML 2 ML AMP ONE (11:46)
[2023-04-06] MEDS ORDERED: PROPOFOL 10 MG/ML 20 ML VIAL IV ONE (11:46)
--- NOTE | 2023-04-06 12:59 | P.OP ---
Date of Procedure: 04/06/23 Preoperative Diagnosis: 1.) Right thumb CMC arthritis 2.) Right carpal tunnel syndrome Postoperative Diagnosis: 1.) Right thumb CMC arthritis 2.) Right carpal tunnel syndrome Procedure(s) Performed: 1.) Right thumb CMC basilar joint arthroplasty 2.) Right endoscopic carpal tunnel release Implants: Arthrex SwivelLock 3.5 mm suture anchor x 2 Anesthesia: MAC, regional Surgeon: Jeffrey Marte Non Destructive Evaluation Manager #1: Hesham Garcia Estimated Blood Loss (ml): 0 Pathology: none sent Condition: stable Disposition: PACU Description of Procedure: This is a 62 year old female who presents today for a right thumb CMC basal joint arthroplasty and right endoscopic carpal tunnel release after having failed conservative treatment for severe thumb CMC arthritis and carpal tunnel syndrome. Risks and benefits of surgery were discussed with the patient including bleeding, damage to surrounding tissue, infection, need for further surgery as well as risks of anesthesia including pulmonary embolism and even and the patient wished to proceed with surgical intervention. The patients was seen in the pre-operative area by myself. Consent and H&P were completed and updated. The correct extremity was marked in the pre-operative area by myself and all other questions were answered. Patient received a upper extremity nerve block by the department of anesthesia. He then was brought to the operating room by the department of anesthesia. They remained on the portable stretcher and a rolling hand table was brought to the side of the operative extremity. The patient was then drifted off to sleep by the department of anesthesia. A nonsterile tourniquet was then applied to the operative extremity and the right upper extremity was then prepped and draped in normal sterile fashion. Pre-operative time out was performed indicating the correct patient, procedure and laterality. All in the room agreed. Pre-operative antibiotics were given prior to skin incision. The operative extremity was the exsanguinated with an esmarch bandage and the tourniquet was inflated to 250mmHg. 15 blade scalpel was utilized to make a transverse incision on the palmar skin just ulnar to the palmaris longus tendon at the level of the distal wrist crease. Ragnell retractor was then placed radially and blunt dissection was performed to reveal the distal forearm fascia. This was lifted with fine Wilmar pick ups and Littler tenotomy scissors were then used to open the forearm fascia transversely and a double skin hook was then placed. Hamate finder was placed into the carpal tunnel and then sequential sized dilators were inserted followed by the synovial elevator to separate the flexor tenosynovium from the undersurface of the transverse carpal ligament and a washboard texture was felt. The MicroAire endoscopic carpal tunnel release system gun was the then inserted into the carpal tunnel hugging the deep portion of the transverse carpal ligament in line with the base of the ring finger. Transverse fibers of the ligament were directly visualized. Pressure was applied on the palm to reveal the distal extent of the transverse carpal ligament. The blade was then deployed and the distal half of the transverse carpal ligament was released. The scope was then brought distal again and remaining transverse fibers were incised with the blade. The proximal half of the transverse carpal ligament was then divided and again the scope was advanced distal and remaining transverse fibers were incised with the blade. The radial and ulnar leaflets were directly visualized and mobile consistent with complete release. Tenotomy scissors were then utilized to release the remaining distal forearm fascia under direct visualization taking care to preserve the palmar cutaneous branch of the median nerve. Longitudinal incision was made over the left thumb CMC joint with a 15 blade scalpel. Blunt dissection was taken down to subcutaneous tissues with littler scissors taking care to preserve the branches of the superficial radial nerve. Dorsal radial artery was identified proximally in the incision and protected throughout the procedure. Scalpel was then made to incise the thumb CMC joint creating full thickness flaps off of the proximal metacarpal base and trapezium, this plane was further developed with a periosteal elevator. Elevator was then utilized to identify the thumb CMC joint and scaphotrapezial joint. McGlamory elevator was then used to excise the trapezium whole. Guidewire was then introduced down to the laser line at the base of the first metacarpal through the same incision and was over drilled. Another guidewire was then inserted at the radial base of the first metacarpal near the Insertion of APL and was then over drilled with normal drill guide. A 3.5mm Arthrex SwiveLock anchor was then inserted into the base of the first metacarpal. While holding the thumb in slight traction and full adduction, another 3.5mm Arthrex SwiveLock anchor was inserted into the base of the second metacarpal and the fibertape was centered across the first metacarpal base to create a sling around the base suspending the thumb metacarpal, good pia purchase was appreciated. The thumb was successfully suspended and full ROM was achieved passively. Suture ends were cut and skin was closed with several interrupted 4-0 Monocryl sutures followed by a running 4-0 Monocryl stitch. Sterile dressing consisting of mastisol and steri strips followed by 4x4s cast padding, and a thumb spica plaster splint was applied. Tourniquet was let down and the hand had brisk cap refill and normal perfusion immediately. The patient was then woken by the department of anesthesia and transferred to PACU in stable condition. Hesham LOPES was present for the case and assisted in major portions of procedure and protection of vital neurovascular structures. Jeffrey Marte D.O. Orthopedic Hand/Upper Extremity Surgeon
[2023-04-06 13:23] VITALS: BP 122/72; PULSE 66; RESP 16
== END 2023-04-06 13:30 | disposition home or self-care (01) ==
LOC: OR 10:56
PROVIDERS: ATTEND Orthopaedic Surgery Hand Surgery
DX: G56.01 Carpal tunnel syndrome, right upper limb (principal); M18.11 Unilateral primary osteoarthritis of first carpometacarpal joint, right hand; I10 Essential (primary) hypertension; E78.5 Hyperlipidemia, unspecified; E11.9 Type 2 diabetes mellitus without complications; Z87.891 Personal history of nicotine dependence; Z79.899 Other long term (current) drug therapy; Z79.84 Long term (current) use of oral hypoglycemic drugs
CPT/HCPCS: 29848; 25447; 64415; C1713; J2250; J1100; J0690; J2405; J3010; J2795; J2704

== ENCOUNTER → 2023-10-10 | Outpatient (CLI) | payer OTHER ==
--- NOTE | 2023-10-12 20:00 | MM ---
Reason for Exam: Screening (asymptomatic). Last mammogram was performed 1 year(s) and 8 month(s) ago. Patient History: Menarche at age 11. First Full-Term at age 25. Postmenopausal. Patient used Hormonal Contraceptives for 10 years. 01/06/2012, Benign Cyst Aspiration on the right side. Risk Values: Candy 5 year model risk: 1.8%. NCI Lifetime model risk: 7.2%. Prior Study Comparison: 06/16/2018 Bilateral Diagnostic Mammogram, [facility]. 08/28/2019 Bilateral Screening Mammogram, [facility]. 01/28/2022 Bilateral MG screening mammo w CAD, [facility]. Tissue Density: The breast tissue is heterogeneously dense. This may lower the sensitivity of mammography. Findings: Analyzed By CAD. Microclip right breast from prior biopsy. Asymmetric density central right cc view anterior depth appears more defined. This may represent superimposition shadow but further evaluation is recommended. Otherwise, no significant change. Overall Assessment: Incomplete: need additional imaging evaluation, BI-RAD 0 Management: Special View Mammogram of the right breast. Diagnostic Breast Ultrasound of the right breast. Additional views to include spot 3-D CC, 3-D CC rolled, and 3-D lateral views. Targeted right breast ultrasound if any persisting abnormality. [facility] will attempt to contact patient to return for supplemental views and ultrasound if indicated. Electronically signed and approved by: Mariella Hobbs M.D. Radiologist
== END | disposition home or self-care (01) ==
LOC: RADMAMWWP 15:47
PROVIDERS: ATTEND Family Medicine
DX: Z12.31 Encounter for screening mammogram for malignant neoplasm of breast (principal); Z78.0 Asymptomatic menopausal state
CPT/HCPCS: 77067

== ENCOUNTER → 2023-10-14 | Outpatient (CLI) | payer OTHER ==
--- NOTE | 2023-10-19 13:33 | MM ---
Reason for Exam: Additional evaluation requested from abnormal screening. Last screening mammogram was performed less than 1 month ago. Patient History: Menarche at age 11. First Full-Term at age 25. Postmenopausal. Patient used Hormonal Contraceptives for 10 years. 01/06/2012, Benign Cyst Aspiration on the right side. Risk Values: Candy 5 year model risk: 1.8%. NCI Lifetime model risk: 7.2%. Prior Study Comparison: 05/06/2017 Right Diagnostic Mammogram, [facility]. 06/16/2018 Bilateral Diagnostic Mammogram, [facility]. 08/28/2019 Bilateral Screening Mammogram, [facility]. 01/28/2022 Bilateral MG screening mammo w CAD, [facility]. 10/10/2023 Bilateral MG screening mammo w CAD, [facility]. Tissue Density: Right: The breast tissue is heterogeneously dense. This may lower the sensitivity of mammography. Findings: Analyzed By CAD. Microclip upper outer quadrant right breast from prior biopsy. The questioned subareolar asymmetric density in the cc view does not show any persisting abnormality on spot 3-D images. No abnormality on the 3-D lateral view. Findings compatible with superimposition shadow. Chronic nodularity inferiorly on the lateral view middle depth. Overall Assessment: Benign, BI-RAD 2 Management: Screening Mammogram of both breasts in 1 year. . Results were given to the patient verbally at the time of exam. Patient should continue monthly self-breast exams. A clinical breast exam by your physician is recommended on an annual basis. This exam should not preclude additional follow-up of suspicious palpable abnormalities. Note on Candy scores and lifetime risk: 1. A Candy score greater than 3% is considered moderate risk. If this is the case, consider specialist referral to assess eligibility for a risk reducing agent. 2. If overall lifetime risk for the development of breast cancer is 20% or higher, the patient may qualify for future screening with alternating mammogram and breast MRI. Electronically signed and approved by: Mariella Hobbs M.D. Radiologist
== END | disposition home or self-care (01) ==
LOC: RADMAMWWP 06:49
PROVIDERS: ATTEND Family Medicine
DX: R92.331 Mammographic heterogeneous density, right breast (principal); Z78.0 Asymptomatic menopausal state
CPT/HCPCS: 77061; 77065

== ENCOUNTER → 2024-06-20 | Outpatient (CLI) | payer OTHER ==
--- NOTE | 2024-06-20 15:35 | US ---
EXAMINATION TYPE: US venous doppler duplex LE LT DATE OF EXAM: 06/20/2024 2:58 PM COMPARISON: NONE CLINICAL INDICATION: Female, 63 years old with history of M79.662 PAIN IN LLE R22.42 SWELLING LLE; Le ft leg pain and swelling, Pain, Swelling TECHNIQUE: The lower extremity deep venous system is examined utilizing real time linear array sonog arlette with graded compression, color doppler sonography, and spectral doppler. SIDE PERFORMED: Left FINDINGS: VESSELS IMAGED: Common Femoral Vein Deep Femoral Vein Greater Saphenous Vein * Femoral Vein Popliteal Vein Small Saphenous Vein * Proximal Calf Veins (* superficial vessels) Left Leg: Appears negative for DVT IMPRESSION: No ultrasound evidence for deep venous thrombosis. [facility], , 06/20/2024 3:33 PM
== END | disposition home or self-care (01) ==
LOC: RADUSWWP 14:55
PROVIDERS: ATTEND Family Medicine
DX: R22.42 Localized swelling, mass and lump, left lower limb (principal)

== ENCOUNTER → 2024-10-15 | Outpatient (CLI) | payer MEDICARE, OTHER ==
--- NOTE | 2024-10-16 07:52 | MM ---
Reason for Exam: Screening (asymptomatic). Last screening mammogram was performed 12 month(s) ago. Patient History: Menarche at age 11. First Full-Term at age 25. Postmenopausal. Patient used Hormonal Contraceptives for 10 years. 01/06/2012, Benign Cyst Aspiration on the right side. Risk Values: Candy 5 year model risk: 1.8%. NCI Lifetime model risk: 6.9%. Prior Study Comparison: 01/28/2022 Bilateral MG screening mammo w CAD, [facility]. 10/10/2023 Bilateral MG screening mammo w CAD, [facility]. 10/14/2023 Right MG 3D work up w/cad RT, [facility]. Tissue Density: There are scattered areas of fibroglandular density. Findings: Analyzed By CAD. Right breast biopsy clip. Right breast: There is no suspicious group of microcalcifications or new suspicious mass. Left breast: There is no suspicious group of microcalcifications or new suspicious mass. Overall Assessment: Benign, BI-RAD 2 Management: Screening Mammogram of both breasts in [address] [facility] will attempt to contact patient to return for supplemental views and ultrasound if indicated. Patient should continue monthly self-breast exams. A clinical breast exam by your physician is recommended on an annual basis. This exam should not preclude additional follow-up of suspicious palpable abnormalities. Note on Candy scores and lifetime risk: 1. A Candy score greater than 3% is considered moderate risk. If this is the case, consider specialist referral to assess eligibility for a risk reducing agent. 2. If overall lifetime risk for the development of breast cancer is 20% or higher, the patient may qualify for future screening with alternating mammogram and breast MRI. [facility], , 10/16/2024 7:49 AM. Electronically signed and approved by: Kristopher Pastor DO
== END | disposition home or self-care (01) ==
LOC: RADMAMWWP 16:39
PROVIDERS: ATTEND Family Medicine
DX: Z12.31 Encounter for screening mammogram for malignant neoplasm of breast (principal); R92.323 Mammographic fibroglandular density, bilateral breasts; Z78.0 Asymptomatic menopausal state; Z92.0 Personal history of contraception
CPT/HCPCS: 77067